=== PATIENT | female | born 1995 | race African-American/Black ===

== ENCOUNTER 2017-03-27 14:09 | Emergency (ER) | payer MEDICAID, OTHER ==
[~2017-03-27] VITALS: Ht 167.6 cm; Wt 74.0 kg
[~2017-03-27 14:09] MED LIST: BACT800T5 PO; DEPO150I IM; ZOFR4TAB3 SL
[2017-03-27 14:10] VITALS: BP 156/67; PULSE 80; RESP 16; TEMP 98; O2SAT 100
[2017-03-27 15:52] LABS: BLOOD, URINE MOD (NEG); GLUCOSE,URINE NEG (NEG); KETONE, URINE NEG (NEG); NITRITE,URINE NEG (NEG); PH, URINE 6.5 (5.0-8.5)
--- NOTE | 2017-03-27 16:04 | PD ---
HPI Chief Complaint: Flank/Kidney Pain Time Seen by Provider: 14:58 Travel History International Travel<30 days: No Contact w/Intl Traveler<30days: No Traveled to known affect area: No History of Present Illness HPI This 21-year-old female is complaining of suprapubic pain and left flank pain. She says the symptoms been going on since yesterday. She doesn't believe she is . Her last period was March 14. PFSH Past Medical History Medical History: Denies Significant Hx Asthma: Yes Autoimmune Disease: No Blood Disorders: No Anxiety: No Depression: No Cardiovascular Problems: No Developmental Delay: No Diminished Hearing: No Gastrointestinal Disorders: Yes (VOMITED YESTERDAY 4 X) Genitourinary: No Musculoskeletal: No Neurologic: No Psychiatric: No Reproductive: Yes (BRONCHITIS) Respiratory: Yes (DIAG AT 5 YEARS OLD WITH ASTHMA--NO MEDS IN 5 YEARS) Immunizations Current: No Tetanus Vaccination: > 5 Years Influenza Vaccination: No ?: Not LMP: 03/16/17 Past Surgical History Surgical History: No Previous Surgery Other Surgery: No Social History Alcohol Use: Yes (RARE) Tobacco Use: No Substance Use: Yes ("WEED") Allergies-Medications (Allergen,Severity, Reaction): Coded Allergies: No Known Allergies (Verified Adverse Reaction, Unknown, 03/27/17) Reported Meds & Prescriptions Reported Meds & Active Scripts Active No Active Prescriptions or Reported Medications Review of Systems General / Constitutional: No: Fever, Chills Eyes: No: Diploplia HENT: No: Headaches Cardiovascular: No: Chest Pain or Discomfort Respiratory: No: Cough Gastrointestinal: No: Nausea, Vomiting Genitourinary: Positive: Flank Pain Musculoskeletal: No: Myalgias, Arthralgias Skin: No Rash, No Itching Neurologic: No: Weakness, Dizziness Psychiatric: No: Anxiety Hematologic/Lymphatic: No: Easy Bruising Physical Exam Narrative GENERAL: Well-developed female SKIN: Focused skin assessment warm/dry. HEAD: Atraumatic. Normocephalic. EYES: Pupils equal and round. No scleral icterus. No injection or drainage. ENT: No nasal bleeding or discharge. Mucous membranes pink and moist. NECK: Trachea midline. No JVD. CARDIOVASCULAR: Regular rate and rhythm. No murmur appreciated. RESPIRATORY: No accessory muscle use. Clear to auscultation. Breath sounds equal bilaterally. GASTROINTESTINAL: Abdomen soft, non-tender, nondistended. Hepatic and splenic margins not palpable. There is some left CVA tenderness Pelvic: There is some yellowish discharge from the cervix. There are no palpable masses MUSCULOSKELETAL: No obvious deformities. No clubbing. No cyanosis. No edema. NEUROLOGICAL: Awake and alert. No obvious cranial nerve deficits. Motor grossly within normal limits. Normal speech. PSYCHIATRIC: Appropriate mood and affect; insight and judgment normal. Data Data Last Documented VS Vital Signs Date Time Temp Pulse Resp B/P (MAP) Pulse Ox O2 Delivery O2 Flow Rate FiO2 03/27/17 14:10 98.0 80 16 156/67 (96) 100 Orders Orders Gc And Chlamydia Pcr (03/27/17 15:02) Wet Prep Profile (03/27/17 15:02) Urinalysis - C+S If Indicated (03/27/17 15:02) Ed Urine Pregnancytest Poc (03/27/17 15:02) Urine Culture (03/27/17 15:10) Labs Laboratory Tests Test 03/27/17 15:10 03/27/17 15:50 Urine Color YELLOW Urine Turbidity CLOUDY Urine pH 6.5 Urine Specific [place] 1.031 Urine Protein NEG mg/dL Urine Glucose (UA) NEG mg/dL Urine Ketones NEG mg/dL Urine Occult Blood MOD Urine Nitrite NEG Urine Bilirubin NEG Urine Leukocyte Esterase SMALL Urine RBC 4-9 /hpf Urine WBC 20-24 /hpf Urine Squamous Epithelial Cells > 8 /hpf Urine Bacteria MOD /hpf Microscopic Urinalysis Comment CULTURE INDICATED Clue Cells (Wet Prep) PRESENT Vaginal Trichomonas (Wet Prep) NONE SEEN Vaginal Yeast (Wet Prep) NONE SEEN MDM Medical Decision Making Medical Screen Exam Complete: Yes Emergency Medical Condition: Yes Medical Record Reviewed: Yes Differential Diagnosis Differential includes pyelonephritis, UTI, cervicitis Narrative Course Urinalysis shows 20-24 white cells consistent with infection. Wet prep is positive for clue cells consistent with vaginosis. She'll be treated with Bactrim and Flagyl Diagnosis Primary Impression: UTI (urinary tract infection) Qualified Codes: N30.00 - Acute cystitis without hematuria Additional Impression: Bacterial vaginosis Scripts No Active Prescriptions or Reported Meds Disposition: DISCHARGE HOME Condition: Stable Clint Parekh MD Mar 27, 2017 16:04
[2017-03-27 16:28] LABS: BACTERIA, URINE MOD /hpf; SQUAMOUS EPITHELIAL CELL URINE > 8 /hpf (0-5); URINE COLOR YELLOW (YELLW/STRAW)
[2017-03-27 16:30] LABS: COMMENT (UR) CULTURE INDICATED; CULTURE IF INDICATED CULTURE INDICATED
[2017-03-27] MEDS ORDERED: METR-1 PO (16:37)
[2017-03-27] MEDS ORDERED: BACT800T5 PO (16:37)
[2017-03-27 16:53] VITALS: BP 131/77
[2017-03-27 19:00] LABS: CHLAMYDIA PCR NOT DETECTED (NOT DETECT); NEISSERIA PCR NOT DETECTED (NOT DETECT)
== END 2017-03-27 16:58 | disposition home or self-care (01) ==
LOC: PHED 14:09
DX: N30.00 Acute cystitis without hematuria (principal); N76.0 Acute vaginitis
CPT/HCPCS: 81001; 84703; 87086; 87210; 87491; 87591; 99284

== ENCOUNTER 2017-10-15 23:44 | Emergency (ER) | payer SELFPAY ==
[~2017-10-15] VITALS: Ht 165.1 cm; Wt 75.9 kg
[~2017-10-15 23:44] MED LIST changes: -DEPO150I IM; +METR-1 PO; -ZOFR4TAB3 SL
[2017-10-15 23:51] VITALS: BP 133/87; PULSE 69; RESP 18; TEMP 98.7; O2SAT 99
[2017-10-16 00:06] VITALS: BP 133/87; PULSE 69; RESP 18; TEMP 98.7; O2SAT 99
[2017-10-16 00:29] LABS: BILIRUBIN, URINE NEG (NEG); BLOOD, URINE TRACE (NEG); GLUCOSE,URINE NEG (NEG); KETONE, URINE TRACE mg/dL (NEG); NITRITE,URINE NEG (NEG); URINE COLOR YELLOW (YELLW/STRAW); URINE LEUKOCYTE ESTERASE MOD (NEG)
[2017-10-16 00:36] LABS: BACTERIA, URINE MOD /hpf; MUCUS URINE MOD /lpf (OCC); RBC, URINE 0-3 /hpf (0-3); SQUAMOUS EPITHELIAL CELL URINE > 8 /hpf (0-5)
[2017-10-16] MEDS ORDERED: METR-1 PO (00:45)
--- NOTE | 2017-10-16 00:46 | PD ---
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 Patient states happened six months ago and was told it was UTI. Records show in march she was seen and diagnosed with BV and UTI though UC never grew out. Patient states symptoms mild, gradually worsening over the past week, not associated with n/v/ d. Patient denies possiblity for STD. PFSH Past Medical History Asthma: Yes (childhood) Autoimmune Disease: No Blood Disorders: No Anxiety: No Depression: No Cardiovascular Problems: No Developmental Delay: No Diminished Hearing: No Gastrointestinal Disorders: Yes (VOMITED YESTERDAY 4 X) Genitourinary: No Musculoskeletal: No Neurologic: No Psychiatric: No Reproductive: Yes (BRONCHITIS) Respiratory: Yes (DIAG AT 5 YEARS OLD WITH ASTHMA--NO MEDS IN 5 YEARS) Immunizations Current: No ?: Not LMP: 10/04/2017 Past Surgical History Surgical History: No Previous Surgery Other Surgery: No Social History Alcohol Use: Yes (RARE) Tobacco Use: Yes Substance Use: Yes ("WEED") Allergies-Medications (Allergen,Severity, Reaction): Coded Allergies: No Known Allergies (Verified Adverse Reaction, Unknown, 03/27/17) Reported Meds & Prescriptions Reported Meds & Active Scripts Active Flagyl (Metronidazole) 500 Mg Tab 500 Mg PO BID 7 Days Flagyl (Metronidazole) 500 Mg Tab 500 Mg PO TID 7 Days Bactrim DS (Sulfamethoxazole-Trimethoprim) 800-160 Mg Tab 1 Tab PO BID Review of Systems Except as stated in HPI: all other systems reviewed are Neg Physical Exam Narrative GENERAL: WD/WN in nad. SKIN: Warm and dry. HEAD: Normocephalic. EYES: No scleral icterus. No injection or drainage. NECK: Supple, trachea midline. No JVD or lymphadenopathy. CARDIOVASCULAR: Regular rate and rhythm without murmurs, gallops, or rubs. RESPIRATORY: Breath sounds equal bilaterally. No accessory muscle use. GASTROINTESTINAL: Abdomen soft, non-tender, nondistended. No rebound, no percussive tenderness. 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 Milky white discharge c/w BV. No CMT no BMT, no lesion. MUSCULOSKELETAL: No cyanosis, or edema. BACK: Nontender without obvious deformity. No CVA tenderness. Data Data Last Documented VS Vital Signs Date Time Temp Pulse Resp B/P (MAP) Pulse Ox O2 Delivery O2 Flow Rate FiO2 10/16/17 02:24 72 18 124/67 (86) 98 10/16/17 00:06 98.7 Orders Orders Urinalysis - C+S If Indicated (10/15/17 23:50) Ed Urine Pregnancytest Poc (10/15/17 23:50) Wet Prep Profile (10/15/17 23:50) Gc And Chlamydia Pcr (10/15/17 23:50) Urine Culture (10/15/17 23:58) Ed Discharge Order (10/16/17 01:08) Labs Laboratory Tests Test 10/15/17 22:30 10/15/17 23:58 Clue Cells (Wet Prep) NONE SEEN Vaginal Trichomonas (Wet Prep) NONE SEEN Vaginal Yeast (Wet Prep) NONE SEEN Urine Color YELLOW Urine Turbidity CLEAR Urine pH 6.0 Urine Specific [place] GREATER/EQUAL 1.030 Urine Protein NEG mg/dL Urine Glucose (UA) NEG mg/dL Urine Ketones TRACE mg/dL Urine Occult Blood TRACE Urine Nitrite NEG Urine Bilirubin NEG Urine Urobilinogen 0.2 MG/DL Urine Leukocyte Esterase MOD Urine RBC 0-3 /hpf Urine WBC 9-14 /hpf Urine Squamous Epithelial Cells > 8 /hpf Urine Bacteria MOD /hpf Urine Mucus MOD /lpf Microscopic Urinalysis Comment CULTURE INDICATED MDM Medical Decision Making Medical Screen Exam Complete: Yes Emergency Medical Condition: Yes Differential Diagnosis BV, CV, STD, UTI, . Ovarian torsion highly unlikely, acute abdomen highly unlikely, appendicitis highly unlikely. Narrative Course Patient roomed in ED, benign abdomen, appears well. S/S c/w BV. Emperic antibiotics. Follow up with [facility] [employer] for pap. Stable for DC. Diagnosis Primary Impression: Bacterial vaginosis Med/Other Pt SpecificInfo: Prescription(s) given Scripts Metronidazole (Flagyl) 500 Mg Tab 500 MG PO BID for Infection for 7 Days, #14 TAB 0 Refills Prov: Dimas Fraga MD 10/16/17 Disposition: 01 DISCHARGE HOME Condition: Stable Dimas Fraga MD Oct 16, 2017 00:46
[2017-10-16 02:24] VITALS: BP 124/67
== END 2017-10-16 02:25 | disposition home or self-care (01) ==
LOC: PHED 23:44
DX: N76.0 Acute vaginitis (principal); B96.89 Other specified bacterial agents as the cause of diseases classified elsewhere; R11.10 Vomiting, unspecified; Z72.0 Tobacco use
CPT/HCPCS: 81001; 84703; 87086; 87210; 87491; 87591; 99283